=== PATIENT | male | born 1950 | race Caucasian/White ===

== ENCOUNTER → 2016-08-26 | Outpatient (CLI) | payer BC ==
--- NOTE | 2016-08-26 13:45 | DIAGNOSTIC IMAGING REPORT ---
VIDEO SWALLOW HISTORY: DYSPHAGIA TECHNIQUE: Video fluoroscopic evaluation of swallowing was performed in the AP and lateral projections by the speech pathology staff. The patient is fed nectar-thick and thin liquid barium, a barium coated wafer, and barium pudding. FLUOROSCOPY TIME: 1.6 minutes. A cine loop submitted. COMPARISON STUDY: None. FINDINGS: There is normal hyoid excursion and epiglottic deflection. No significant penetration or aspiration identified. Swallowing function is within normal limits. 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 IMPRESSION: 1. No aspiration identified. 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 2. Please see the speech pathologist report for detailed findings and recommendations. Electronically signed by: Jaskaran Parr M.D. 08/26/2016 1:43 PM Dictated Date/Time: 08/26/2016 1:41 PM
--- NOTE | 2016-08-26 17:38 | SWALLOWING EVALUATION ---
REFERRING SPEECH PATHOLOGIST: n/a HISTORY: This 66 year-old man was referred for a VFSS at [facility] in order to address c/o intermittent solid food dysphagia. The patient has no significant PMH. Currently the patient's diet level is regular. He reports that he has occasional inability to clear solid foods from his pharynx and will expectorate them orally when that occurs. PROCEDURE: The patient was seen in the Radiology Department of [facility] for the VFSS. Cursory examination of the oral cavity revealed adequate dentition. Movement of the articulators was WNL. The patient stood for the procedure and was viewed in both the Anterior-Posterior (A-P) and Lateral planes. Volitional phonation exercises completed in the A-P plane revealed bilateral vocal fold movement and vocal intensity within functional limits. In the lateral plane, the patient was given the following boluses: 1 tsp. thin liquid barium x 2, single swallow thin liquid barium self-presented from a cup, sequential swallows of thin liquid barium self-presented from a straw, 1 tsp. nectar-thick liquid barium, single swallow nectar-thick liquid barium self-presented from a cup, 1 tsp. barium pudding, and 1 club cracker with barium pudding. The patient was then repositioned into the A-P plane and given 1 tsp. barium pudding. RESULTS: Oral Stage: There was no interlabial bolus escape. Cohesive bolus between tongue and palate during oral bolus hold. Timely and efficient mastication. Brisk tongue movement for bolus transport. Complete oral clearance after the swallow. Timely pharyngeal swallow initiation when the bolus head was at the posterior angle of the ramus. The oral-stage of the swallow was WNL. Pharyngeal Stage: No bolus between soft palate and pharyngeal wall. Complete laryngeal elevation, anterior hyoid excursion, epiglottic inversion and laryngeal vestibular closure. Present pharyngeal stripping wave. Complete pharyngeal contraction as seen in AP plane. Partial distention and duration of PES opening with partial obstruction of bolus flow. Complete tongue base retraction. Complete pharyngeal clearance after the swallow. There was no penetration or aspiration during this study. The pharyngeal stage of the swallow was WNL with the exception of a cricopharyngeal impression on the esophageal lumen that minimally obstructed bolus flow. Esophageal Stage: A pudding bolus transited the esophagus without evidence of retention. SUMMARY/RECOMMENDATIONS: This patient presents with mild pharyngo-esophageal dysphagia. The following is recommended: 1. Diet as tolerated 2. Compensatory Strategies: avoid icy cold beverages, alternate solids and liquids during meals 3. Consideration of f/u with gastroenterology and/or ENT to r/o laryngo-pharyngeal reflux (LPR). A summary of the results and recommendations was discussed with the patient immediately following the study. He is anticipating f/u with the referring physician. Thank you for referral of this patient. Please contact me at if any additional information is needed.
== END | disposition home or self-care (01) ==
LOC: C.RAD 12:12
PROVIDERS: ATTEND Family Medicine
DX: R13.14 Dysphagia, pharyngoesophageal phase (principal)

== ENCOUNTER → 2017-08-31 | Outpatient (CLI) | payer OTHER | END | disposition home or self-care (01) | LOC: C.PATHSPEC 18:35 | PROVIDERS: ATTEND Dermatology | DX: C44.629 Squamous cell carcinoma of skin of left upper limb, including shoulder (principal); C44.329 Squamous cell carcinoma of skin of other parts of face; D04.39 Carcinoma in situ of skin of other parts of face ==